=== PATIENT | female | born 1980 | race African-American/Black ===

== ENCOUNTER 2017-09-19 18:52 | Emergency (ER) | payer OTHER ==
[~2017-09-19] VITALS: Ht 144.8 cm; Wt 74.8 kg
[~2017-09-19 18:52] MED LIST: LEVORA-281 EACH PO; NORCO 5-325 TA1 EACH PO; OSELB75 PO; PROMETHAZINE-C120 ML PO; ULTRAM 50MG TAB50 MG PO; ZOFRAN ODT4 MG PO; ZPAK PO
[2017-09-19] MEDS ORDERED: IBUPROFEN 600600 M1 PO (22:32)
== END 2017-09-19 23:00 | disposition home or self-care (01) ==
LOC: ER 18:52
DX: J11.1 Influenza due to unidentified influenza virus with other respiratory manifestations (principal); B34.9 Viral infection, unspecified; F17.210 Nicotine dependence, cigarettes, uncomplicated

== ENCOUNTER 2018-03-06 18:49 | Emergency (ER) | payer BC ==
[~2018-03-06] VITALS: Ht 149.9 cm; Wt 70.3 kg
[~2018-03-06 18:49] MED LIST changes: +IBUPROFEN 600600 M1 PO
[2018-03-06 19:13] VITALS: BP 140/88
[2018-03-06] MEDS ORDERED: VALIUM5 MG PO (20:08)
[2018-03-06] MEDS ORDERED: MOBIC15 MG PO (20:08)
== END 2018-03-06 20:32 | disposition home or self-care (01) ==
LOC: ER 18:49
DX: M54.30 Sciatica, unspecified side (principal); R21 Rash and other nonspecific skin eruption; F17.210 Nicotine dependence, cigarettes, uncomplicated

== ENCOUNTER 2018-03-19 07:50 | Emergency (ER) | payer BC ==
[~2018-03-19] VITALS: Ht 149.9 cm; Wt 79.4 kg
[~2018-03-19 07:50] MED LIST changes: +MOBIC15 MG PO; +VALIUM5 MG PO
[2018-03-19] MEDS ORDERED: PREDNISONE50 MG PO (08:41)
[2018-03-19] MEDS ORDERED: NORCO 5-325 TA1 EACH PO (08:41)
[2018-03-19 09:06] VITALS: BP 134/84
== END 2018-03-19 09:08 | disposition home or self-care (01) ==
LOC: ER 07:50
DX: M54.41 Lumbago with sciatica, right side (principal); F17.210 Nicotine dependence, cigarettes, uncomplicated

== ENCOUNTER 2018-08-20 21:48 | Emergency (ER) | payer BC ==
[~2018-08-20] VITALS: Ht 149.9 cm; Wt 61.2 kg
[~2018-08-20 21:48] MED LIST changes: +PREDNISONE50 MG PO
[2018-08-20] MEDS ORDERED: NORCO 5-325 TA1 EACH PO (22:50)
[2018-08-20 23:00] VITALS: BP 116/69
== END 2018-08-20 23:00 | disposition home or self-care (01) ==
LOC: ER 21:48
DX: J02.9 Acute pharyngitis, unspecified (principal); F17.210 Nicotine dependence, cigarettes, uncomplicated